=== PATIENT | female | born 1930 | race Caucasian/White ===

== ENCOUNTER → 2016-06-24 | Outpatient (CLI) | payer MEDICARE ==
--- NOTE | 2016-06-24 14:10 | Diagnostic Imaging Report ---
INDICATION: Screening. COMPARISON: 10/13/2006. FINDINGS: The right femoral density of 1.0116 g per square centimeter correlates with a T score value of +1.0 which is normal. This is not substantially changed. The left femoral density of 1.096 g per square centimeter correlates with a normal T score value of +0.8. This is also not substantially changed. The lumbar density is 1.399 g per square centimeter with a normal T score value of +1.7. This has increased from the prior exam when the T score value was -0.1. IMPRESSION: Improvements in lumbar density with the overall measurements remaining within normal limits. Dictated by: Dictated on workstation # [id number]
== END ==
LOC: RAD 12:56
PROVIDERS: ATTEND Nurse Practitioner Family
DX: M81.0 Age-related osteoporosis without current pathological fracture (principal)
CPT/HCPCS: 77080